=== PATIENT | female | born 1990 | race Asian ===

== ENCOUNTER → 2019-12-17 | Outpatient (REF) | payer OTHER ==
[2019-12-17 18:43] LABS: APPEARANCE, URINE CLEAR (CLEAR); BACTERIA, URINE AUTO 1+ (NEGATIVE); BILIRUBIN, URINE AUTO NEGATIVE (NEGATIVE); BLOOD, URINE BLOOD 3+ (NEGATIVE); COLOR, URINE STRAW (YELLOW); GLUCOSE, URINE (UA) AUTO NEGATIVE (NEGATIVE); KETONE, URINE AUTO NEGATIVE (NEGATIVE); LEUKOCYTE ESTERASE, URINE AUTO 3+ (NEGATIVE); NITRITE, URINE AUTO NEGATIVE (NEGATIVE); PROTEIN, URINE AUTO NEGATIVE (NEGATIVE); RBC, URINE AUTO 10 /HPF (0-3); SPECIFIC GRAVITY URINE AUTO 1.002 (1.002-1.035); SQUAMOUS EPITHELIAL CELL UR AU 0 /HPF (0-6); UROBILINOGEN, URINE AUTO 0.2 mg/dL (0.0-2.0); WBC, URINE AUTO 21 /HPF (0-3)
== END ==
LOC: M LAB 18:22
PROVIDERS: ATTEND Physician Assistant Medical
DX: N39.0 Urinary tract infection, site not specified (principal)

== ENCOUNTER 2020-02-24 00:46 | Emergency (ER) | payer OTHER ==
[~2020-02-24] VITALS: Ht 154.9 cm; Wt 56.0 kg
[2020-02-24 00:47] VITALS: BP 126/87
[2020-02-24] MEDS ORDERED: CIPR-249 PO (02:36)
[2020-02-24] MEDS ORDERED: PYRI1TAB5 PO (02:36)
[2020-02-24] MEDS ORDERED: CIPROFLOXACIN 500MG TABLET PO ONE (02:45)
[2020-02-24] MEDS ORDERED: PHENAZOPYRIDINE 100 MG TAB PO ONE (02:45)
== END 2020-02-24 03:10 | disposition home or self-care (01) ==
LOC: M ED 00:46
DX: N39.0 Urinary tract infection, site not specified (principal)

== ENCOUNTER 2021-01-07 01:38 | Inpatient (IN) | payer OTHER ==
[~2021-01-07] VITALS: Ht 154.9 cm; Wt 67.6 kg
[2021-01-07] VITALS (29 sets, daily range): BP systolic 77–123; BP diastolic 50–75
[~2021-01-07 01:38] MED LIST: CIPR-249 PO; PYRI1TAB5 PO
[2021-01-07] MEDS ORDERED: OXYTOCIN DRIP 30 UNITS in IV 1 EA IV PRN ×4 (02:55)
[2021-01-07] MEDS ORDERED: CARBOPROST TROMETHAMINE 250 MCG/ML AMP IM PRN (02:55)
[2021-01-07] MEDS ORDERED: METHYLERGONOVINE MALEATE 0.2 MG/ML VIAL (J2210) IM PRN (02:55)
[2021-01-07] MEDS ORDERED: LIDOCAINE 1% MDV 20ML VIAL INFIL PRN (02:55)
[2021-01-07] MEDS ORDERED: miSOPROStol 25MCG 1/4 TABLET PO ONE (02:55)
[2021-01-07] MEDS ORDERED: TRANEXAMIC ACID INJection 1,000 MG in NS 100 ML IV PRN (02:55)
--- NOTE | 2021-01-07 02:58 | HPEPDOC ---
Obstetrical History & Physical General Date of Admission Jan 07, 2021 at 01:38 History of Present Illness 30yo at 41+2 presenting for induction of labor for late-term gestation. Den ies vaginal bleeding, loss of fluid. Endorses occasional contractions and positive movement. Care Care: Good Care Dating Final EDC: Dec 29, 2020 LMP: Mar 24, 2020 Antepartum Course Diagnos(e)s constipation Height (inches): 61 Pre- weight (lbs.): 119 Admission Weight (lbs.): 146 Change in Weight (lbs.): 27 Past Medical History Past Obstetrical History : Past Obstetrical History: Primgravida Past Medical History Medical History denies Surgical History: Denies/None Family History Family History father: hypertension and stroke Social History Marital Status: Family situation: Spouse/partner home Psychosocial History: No pertinent psych hx * Smoker: non-smoker Alcohol: Denies Drugs: denies Abuse Violence Screening Have you been hit/kicked/slapp: No Have you been sexually assault: No Imunizations Tdap status: current Influenza Status: current Allergies Coded Allergies: No Known Allergies (Unverified , 02/24/20) Medications Scheduled Ciprofloxacin HCl (Cipro) 500 Mg Tablet, 500 MG PO BID Phenazopyridine HCl (Pyridium) 200 Mg Tablet, 200 MG PO Q8H Physical Examination Physical Examination GENERAL: Alert and oriented times three. ABDOMEN: Gravid and non-tender to touch. FETUS: Is vertex (VTX) by ultrasound HEART RATE: Regular rate LUNGS: nonlabored breathing EXTREMITIES: No edema. Laboratory Data Urine Culture: No Growth Pertinent Laboratoy Data Blood Type: O+ RBC Antibody Screen: Negative HIV: Negative Hepatitis B: Negative Rapid Plasma Reagin: Nonreactive Rubella: Immune Varicella: Immune Chlamydia/Gonorrhea: Negative Group B Streptococcus: Negative Quad Screen Test: Negative (Maternity 21 neg) Cystic Fibrosis: Negative Glucose Tolerance Test: 135 Anatomy Ultrasound Ultrasound Date: August 13, 2020 Placenta Location: Anterior Normal Anatomy: Yes Placenta Previa: No Steroid Therapy Steroid Therapy: No Vaginal Examination Dilation: 1cm Effacement: 30% Station: -2 Cervical Consistency: Medium Cervical Position: Middle Presentation: Cephalic presentation Position: Vertex (occiput) Assessment Heart Rate (FHR): 130 Variability: Moderate Accelerations: Positive Decelerations: None Tocometer Contractions: Yes Frequency: every 3-7 min. Multi-drug resistant Organism: No history of MDRO Assessment/Plan Assessment Sabrina Jimenez is a 30-year-old (G)1 at 41+2 weeks by 9-week ultrasound. Presents to Labor and Delivery (L&D) for induction for late term gestation. Otherwise uncomplicated with benign exam. 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 Diet: clear liquid Group B Streptococcus (GBS) [negative]. Labs and intravenous (IV) per unit protocol. Counseled on Pitocin and induction of labor (IOL). Lactated Ringers (LR): at 125 mL/hr. Anticipate [normal spontaneous delivery ()]. C-S as appropriate. Castro bulb 40cc and 25mcg cytotec PO monitor and deliver Labor and Delivery Counseling L&D consent We will deliver your baby through the vagina with possible assistance of forceps or vacuum device if needed for maternal or indications. Forceps and vacuum are devices that can assist with vaginal delivery when normal pushing efforts cannot achieve delivery on their own or when delivery is needed in an emergency for baby's well-being. Medications may be required to induce or augment (help) your labor in order to achieve a vaginal delivery. An episiotomy may be required to help your baby to delivery vaginally. You may also require repair of any lacerations or tears of your vagina or vulva that are caused by delivery. In some cases, emergencies can occur that require an emergency section delivery so quickly that there may not be enough time to stop and complete consent forms for section. Understand that if this occurs, your providers will discuss the need for a section with you before they proceed with surgery. section is the delivery of your baby through an incision in your abdomen. In some situations, section may be safer to mom and baby than continuing labor and is only performed when clinically indicated. Risks of vaginal delivery include but are not limited to: Bleeding, infection, injury to the vagina, pelvic structures, injury to baby, damage to the uterus, reactions to anesthesia, uterine rupture, risk of hysterectomy for life threatening bleeding, or . Medications used to induce or augment labor may increase your risk for infection, uterine tachysystole, uterine rupture, heart rate abnormalities, need for emergency delivery or possible hysterectomy, and hemorrhage. Additional risks for use of forceps and vacuum include: increased risk of perineal and vaginal lacerations, risk of urinary or bowel incontinence, increased risk of injury to baby with bruising, scratches, hematomas on the head, or intracranial bleeding. CARMELITA RIVAS. DO Jan 07, 2021 02:18
[2021-01-07 04:13] LABS: HEMATOCRIT 36.4 % (36.0-47.0); HEMOGLOBIN 12.6 g/dl (12.0-15.5); MEAN CORPUSCULAR HGB CONC 34.6 g/dl (32.0-36.5); MEAN CORPUSCULAR VOLUME 98.1 fl (80.0-96.0); PLATELET COUNT, AUTOMATED 195 10^3/uL (150-450); RED BLOOD COUNT 3.71 10^6/uL (4.00-5.40); WHITE BLOOD COUNT 9.2 10^3/uL (4.0-10.0)
[2021-01-07] MEDS ORDERED: PRENTAB9 PO (05:09)
[2021-01-07] MEDS ORDERED: HOME MED LIST COMPLETE! XX SCH (05:10)
[2021-01-07] MEDS: LR 1,000 ML IV SCH ×5 (05:34→23:41)
[2021-01-07] MEDS ORDERED: miSOPROStol 50MCG 1/2 TABLET PO ONE (11:50)
--- NOTE | 2021-01-07 12:53 | IPNPDOC ---
Text Note Date of Service The patient was seen on 01/07/21. NOTE 01/07/21 review progress 30 yo admitted for iol 41.2 weeks had cook's catheter and 1 misoprostol no contractions . examination cook's in place cervix posterior no srom gbs negative . plan rx 1 misoprostol 50 mg po VS,Fishbone, I+O VS, Fishbone, I+O Laboratory Tests 01/07/21 03:33 Vital Signs Date Time Temp Pulse Resp B/P (MAP) Pulse Ox O2 Delivery O2 Flow Rate FiO2 01/07/21 04:59 61 18 105/54 (71) 01/07/21 01:58 98.0 Juice Otero MD Jan 07, 2021 12:53
--- NOTE | 2021-01-07 17:18 | IPNPDOC ---
Text Note Date of Service The patient was seen on 01/07/21. NOTE 01/07/21 1700 hrs reviewed progress had 1 episode of deceleration with recovery still no effective contractions . Plan remove Castro catheter reviewed pelvic examination cervix soft 2-3 posterior 70% effaced . recovery to category 1 strip plan Pitocin augmentation safe to proceed VS,Fishbone, I+O VS, Fishbone, I+O Laboratory Tests 01/07/21 03:33 Vital Signs Date Time Temp Pulse Resp B/P (MAP) Pulse Ox O2 Delivery O2 Flow Rate FiO2 01/07/21 04:59 61 18 105/54 (71) 01/07/21 01:58 98.0 Juice Otero MD Jan 07, 2021 17:18
[2021-01-07] MEDS ORDERED: OXYTOCIN DRIP 30 UNITS in IV 1 EA IV SCH (17:20)
--- NOTE | 2021-01-07 19:27 | IPNPDOC ---
Text Note Date of Service The patient was seen on 01/07/21. NOTE 192 SPONTANEOUS LATE DECELERATIONS WITH RECOVERY POST DATES ON PITOCIN. RESUSCITATION D/C PITOCIN WILL DO AROM WITH OPTION OF POSSIBLE CS DUE TO REMOTE FROM DELIVERY AND NRFHT VS,Fishbone, I+O VS, Fishbone, I+O Laboratory Tests 01/07/21 03:33 Vital Signs Date Time Temp Pulse Resp B/P (MAP) Pulse Ox O2 Delivery O2 Flow Rate FiO2 01/07/21 17:59 60 86/53 (64) 01/07/21 17:29 18 01/07/21 13:20 98.0 Juice Otero MD Jan 07, 2021 19:27
--- NOTE | 2021-01-07 20:52 | IPNPDOC ---
Text Note Date of Service The patient was seen on 01/07/21. NOTE ASSESSMENT 2048 PM CATEGORY 1 STRIP WITHOUT PITOCIN MODERATE VARIABILITY STILL LOW BP PLAN AROM AND EVALUATE CONTRACTIONS . DISCUSSED PLAN OF CARE AROM PARTICULATE MECONIUM VERTEX STILL POSTERIOR 3-4 SOFT -3 STATION EVALUATE CONTRACTIONS AND CERVICAL CHANGE IN 2 HOURS REVIEWED IF NRFHT AND REMOTE FROM DELIVERY WILL REQUIRE CS VS,Fishbone, I+O VS, Fishbone, I+O Laboratory Tests 01/07/21 03:33 Vital Signs Date Time Temp Pulse Resp B/P (MAP) Pulse Ox O2 Delivery O2 Flow Rate FiO2 01/07/21 17:59 60 86/53 (64) 01/07/21 17:29 18 01/07/21 13:20 98.0 Juice Otero MD Jan 07, 2021 20:52
[2021-01-07] MEDS ORDERED: FENTANYL 2MCG/ML ROPIVACAINE 0.2% IN 0.9% NACL 100ML IVBAG As Ordered ONE (22:11)
[2021-01-07] MEDS ORDERED: NALOXONE INJ 0.4MG/1ML VIAL (J2310 PER 1MG) IV PRN (23:07)
[2021-01-07] MEDS ORDERED: diphenhydrAMINE 50MG/ML VIAL (J1200) IV PRN (23:07)
[2021-01-07] MEDS ORDERED: LACTATED RINGER'S 1000 ML IV PRN (23:07)
[2021-01-07] MEDS ORDERED: ePHEDrine SULFATE 25 MG/5 ML(5MG/ML) SYRINGE IV PRN (23:07)
[2021-01-07] MEDS ORDERED: REFRIGERATOR IV KEYS XX PRN (23:07)
[2021-01-07] MEDS ORDERED: EPIDURAL/PCA KEYS XX PRN (23:07)
[2021-01-07] MEDS ORDERED: FENTANYL/ROPIVACAINE/NACL BAG 100 ML EPIDURAL SCH (23:07)
[2021-01-07] MEDS ORDERED: ONDANSETRON 4MG/2ML VIAL IV PRN (23:07)
[2021-01-07] MEDS ORDERED: EPIDURAL COMMENT XX SCH (23:07)
[2021-01-08] VITALS (21 sets, daily range): BP systolic 84–149; BP diastolic 50–92
[2021-01-08] MEDS ORDERED: OXYTOCIN INJ 10 UNITS/ML VIAL (J2590) As Ordered ONE (06:27)
[2021-01-08] MEDS ORDERED: OXYTOCIN INJ 10 UNITS/ML VIAL (J2590) IV ONE ×2 (07:30→09:15)
[2021-01-08 07:58] LABS: CORD GAS ABE A -2.9; CORD GAS HCO3 A 23.4 MEQ/L; CORD GAS O2 SAT A 31.9 %; CORD GAS PCO2 A 46.1 mmHg; CORD GAS PH A 7.324 UNITS; CORD GAS PO2 A 10.3 mmHg; CORD GAS SBC A 20.5 MEQ/L; CORD GAS TCO2 A 24.8 MEQ/L
[2021-01-08 07:59] LABS: CORD GAS ABE V -1.5; CORD GAS HCO3 V 22.3 MEQ/L; CORD GAS O2 SAT V 69.7 %; CORD GAS PCO2 V 35.5 mmHg; CORD GAS PH V 7.416 UNITS; CORD GAS PO2 V 21.5 mmHg; CORD GAS SBC V 22.4 MEQ/L; CORD GAS TCO2 V 23.4 MEQ/L
[2021-01-08] MEDS ORDERED: MOM 30ML SUSPENSION UDC PO PRN (09:15)
[2021-01-08] MEDS ORDERED: DOCUSATE SODIUM 100MG CAPSULE PO PRN (09:15)
[2021-01-08] MEDS ORDERED: METHYLERGONOVINE MALEATE 0.2 MG/ML VIAL (J2210) IM ONE (09:15)
[2021-01-08] MEDS ORDERED: RHOGAM 300 MCG (1500 IU) INJ (J2790) IM SCH (09:15)
[2021-01-08] MEDS ORDERED: ACETAMINOPHEN 500 MG TAB PO PRN (09:15)
[2021-01-08] MEDS ORDERED: MEASLES,MUMPS,RUBELLA VACCINE INJ (MMR-II) (90707) SC SCH (09:15)
[2021-01-08] MEDS ORDERED: METHYLERGONOVINE MALEATE 0.2 MG TAB PO PRN (09:15)
[2021-01-08] MEDS ORDERED: ACETAMINOPHEN TAB 650MG DOSE (2X325MG) PO PRN (09:15)
[2021-01-08] MEDS ORDERED: OXYTOCIN DRIP 30 UNITS in IV 1 EA IV ONE (09:15)
[2021-01-08] MEDS ORDERED: ANUSOL HC CREAM 30GM TOP PRN (09:15)
[2021-01-08] MEDS: IBUPROFEN 600MG TAB PO PRN (10:59)
--- NOTE | 2021-01-08 12:12 | DN ---
DELIVERY NOTE DATE OF DELIVERY: 01/08/2021 TIME OF : GENDER: APGARS: LACERATIONS: ANESTHESIA: ESTIMATED BLOOD LOSS: COUNTS: DESCRIPTION OF DELIVERY: This 30-year-old 1 now para 1 was admitted for induction of labor because of late postterm at 41 and 3 weeks of gestation. With epidural in place, spontaneous vaginal delivery of a female , 6 pounds, 12 ounces (3070 grams), Apgars of 8 and 9 at one and five minutes respectively. Meconium stain fluid was note predelivery and during the delivery. Baby was suctioned for a moderate amount of fluid. Arterial pH 7.32, base excess -2.9; venous pH 7.41, base excess -1.5. She sustained a first degree tear. Uterus contracted well on her Pitocin. Three vessel cord, membranes and tissues intact, was meconium stained. Placenta was spontaneously delivered. The midline episiotomy was oversewn in the usual fashion with a [id number]. The uterus was well contracted. Anterior, posterior and lateral acosta were intact. Sphincter was tight. Patient and baby tolerated the procedure well. cc: [facility]
[2021-01-08] MEDS: DIBUCAINE 1% OINTMENT 30GM TOP PRN (12:36)
[2021-01-09 06:00] VITALS: BP 94/59
[2021-01-09] MEDS: PRENATAL VITAMINS CHEWABLE TABLET PO SCH (08:45)
[2021-01-09] MEDS: DIBUCAINE 1% OINTMENT 30GM TOP PRN (08:45)
[2021-01-09] MEDS: IBUPROFEN 600MG TAB PO PRN (08:46)
--- NOTE | 2021-01-09 09:14 | IPNPDOC ---
Progress Note Date of Service: Jan 09, 2021 Day#: 1 Progress Note S: States she is doing well. Reports pain well controlled. She is ambulating well, tolerating a regular diet, urinating without difficulty, reports normal bowel activities and has no breast or leg pain. States she is having some trouble with latch and sore left nipple. Lochia is diminishing. Ambulating well, denies dizziness, lightheadedness. O: VS: General: Alert. Well-appearing, in no acute distress. PSYCH: Well groomed. Appropriate affect, normal mood. Conversed easily. Neuro: Oriented to time, place, and person. RESP: Lungs clear to auscultation bilaterally without wheezes, rales or rhonchi. Unlabored breathing. CV: Normal RRR, no murmur, c/w normal . No edema to bilateral upper and lower extremities. Negative calf tenderness. Breast: Soft, filling. No erythema or tenderness. Redness and scab to left nipp le. ABD: Soft, non-tender. BS normal x4 quad. Fundus: Firm U-1, Fundus non-tender. Lochia: small, rubra, without odor. Perineum: well approximated with moderate edema MSK: legs without calf tenderness or edema bilaterally SKIN: Dry, intact. A/P 30yo G 1 P 1 day 1 s/p at 41+3 wks gestation O positive/GBS negative/RI/ Normal progression, laceration healing well. well with some latch difficulties. Working with nursing staff. VSS Undecided on control after discharge. F/U at 6wk visit. Continue care and comfort measures, tylenol/motrin for pain Encouraged and ambulation Plan discharge home tomorrow VS, I&O, 24H, Fishbone Vital Signs/I&O Vital Signs Date Time Temp Pulse Resp B/P (MAP) Pulse Ox O2 Delivery O2 Flow Rate FiO2 01/09/21 06:00 97.9 77 17 94/59 (71) 98 Room Air I&O- Last 24 Hours up to 6 AM 01/09/21 05:59 Intake Total 870 ml Output Total 2660 ml Balance -1790 ml ANDREINA ESPINO CNM Jan 09, 2021 09:13
[2021-01-09 10:15] LABS: HEMATOCRIT 29.7 % (36.0-47.0); HEMOGLOBIN 10.2 g/dl (12.0-15.5); MEAN CORPUSCULAR HEMOGLOBIN 34.2 pg (27.0-33.0); MEAN CORPUSCULAR HGB CONC 34.3 g/dl (32.0-36.5); MEAN CORPUSCULAR VOLUME 99.7 fl (80.0-96.0); PLATELET COUNT, AUTOMATED 145 10^3/uL (150-450); RED BLOOD COUNT 2.98 10^6/uL (4.00-5.40); WHITE BLOOD COUNT 12.9 10^3/uL (4.0-10.0)
[2021-01-09 18:00] VITALS: BP 100/60
[2021-01-10] MEDS: IBUPROFEN 600MG TAB PO PRN (05:27)
[2021-01-10 06:00] VITALS: BP 92/56
--- NOTE | 2021-01-10 06:37 | IPNPDOC ---
Progress Note Date of Service: Jan 10, 2021 Progress Note SUBJECT: 30-year-old 1 now para 1 was admitted for induction of labor because of late postterm at 41 and 3 weeks of gestation. With epidural in place, spontaneous vaginal delivery of a female infant, 6 pounds, 12 ounces (3070 grams), Apgars of 8 and 9 , doing well day # 2. She has been ambulating, voiding spontaneously without issue and tolerating regular diet. Breast feeding without issue. Reports lochia is like a normal period. Patient is ambulating well. OBJECTIVE: VITAL SIGNS: Within normal limits, afebrile. Alert and oriented times three. Breath sounds clear to auscultation. Heart rate: Regular rate and rhythm, no murmurs, rubs or gallops. Abdomen: Fundus firm at U-2. Soft, NTTP. Negative calf tenderness bilaterally. ASSESSMENT: As above, doing well on day 2. Vitals within normal l imits, afebrile, hemodynamically stable with no evidence of infection. PLAN: 1. Discharge to home today. 2. Tylenol and Motrin for pain. 3. Encourage breast feeding and ambulation. 4. undecided for control 5. Routine PP visit in 6 weeks in clinic. 6. Discussed return precautions at length. VS, I&O, 24H, Fishbone Vital Signs/I&O Vital Signs Date Time Temp Pulse Resp B/P (MAP) Pulse Ox O2 Delivery O2 Flow Rate FiO2 01/10/21 06:00 98.3 63 18 92/56 (68) 100 Room Air Laboratory Data 24H LABS Laboratory Tests 2 01/09/21 08:50: Nucleated Red Blood Cells % (auto) 0.0 CBC/BMP Laboratory Tests 01/09/21 08:50 CARMELITA RIVAS DO Jan 10, 2021 06:30
[2021-01-10] MEDS ORDERED: DOCU100C16 PO (06:40)
[2021-01-10] MEDS ORDERED: IBUP-1022 PO (06:40)
[2021-01-10] MEDS ORDERED: ACET-683 PO (06:40)
[2021-01-10 06:42] VITALS: BP 98/62
[2021-01-10] MEDS: PRENATAL VITAMINS CHEWABLE TABLET PO SCH (09:00)
== END 2021-01-10 13:25 | disposition home or self-care (01) | DRG 833 ==
LOC: M LDI 01:38 → M OBS 01-08 10:08
PROVIDERS: ADMIT Obstetrics & Gynecology; ATTEND Obstetrics & Gynecology
PROC: 3E0DXGC Introduction of Other Therapeutic Substance into Mouth and Pharynx, External Approach (ICD-10-PCS; 2021-01-07)
PROC: 0W8NXZZ Division of Female Perineum, External Approach (ICD-10-PCS; principal; 2021-01-08)
PROC: 0HQ9XZZ Repair Perineum Skin, External Approach (ICD-10-PCS; 2021-01-08)
DX: O48.0 Post-term pregnancy (principal); Z37.0 Single live birth; Z3A.41 41 weeks gestation of pregnancy; O77.0 Labor and delivery complicated by meconium in amniotic fluid; O70.0 First degree perineal laceration during delivery